=== PATIENT | female | born 1990 | race African-American/Black ===

== ENCOUNTER 2021-12-13 10:22 | Emergency (ER) | payer SELFPAY ==
[2021-12-13] MEDS ORDERED: Ketorolac Tromethamine 30 MG/ML VIAL ONE (11:03)
[2021-12-13] MEDS ORDERED: Lorazepam 1 MG TAB ONE (11:10)
== END 2021-12-13 11:17 | disposition home or self-care (01) ==
LOC: CSHERS 10:22
DX: U07.1 COVID-19 (principal); R06.4 Hyperventilation; F17.210 Nicotine dependence, cigarettes, uncomplicated
CPT/HCPCS: 71045; 93005; 96374; J1885; U0003; U0005

== ENCOUNTER 2021-12-26 09:26 | Emergency (ER) | payer SELFPAY ==
[2021-12-26] MEDS ORDERED: Ketorolac Tromethamine 30 MG/ML VIAL ONE (10:23)
[2021-12-26 10:27] LABS: #Eosinphils 0.1 10x3/uL (0.0-0.5); #Monocytes 0.7 10x3/uL (0.0-1.1); #Neutrophils 4.2 10x3/uL (1.5-8.4); %Basophils 0.3 % (0.0-2.0); %Eosinophils 0.8 % (0.0-6.0); %Lymphocytes 37.9 % (18.0-47.0); %Monocytes 8.3 % (0.0-10.0); %Neutrophils 52.3 % (40.0-75.0); Hemoglobin 12.3 g/dL (12.0-15.5); Mean Corpuscular HGB CONC 33.4 g/dL (32.0-36.0); Mean Corpuscular Volume 83.8 fl (81.6-98.3); Mean Platelet Volume 10.2 fl (7.4-10.4); Platelet Count 370 10x3/uL (150-450); RBC Distribution Width 13.1 % (11.5-14.5); Red Blood Cell (RBC) Count 4.39 10x6/uL (3.90-5.03)
[2021-12-26 11:04] LABS: ALT (SGPT) 14 U/L (8-55); AST (SGOT) 15 U/L (5-34); Albumin 4.7 g/dL (3.5-5.0); Alkaline Phosphatase 54 U/L (40-110); Anion Gap 16 mmol/L (10-20); BUN (Urea Nitrogen) 10 mg/dL (7.0-18.7); Bilirubin, Total 0.8 mg/dL (0.2-1.2); Calc. Creatinine Clearance 0 mL/min (70-130); Calcium 9.8 mg/dL (7.8-10.44); Carbon Dioxide 22 mmol/L (22-29); Chloride 105 mmol/L (98-107); Estimated GFR 103; Globulin 3.2 g/dL (2.4-3.5); Glucose 99 mg/dL (70-105); Potassium 3.6 mmol/L (3.5-5.1); Protein, Total 7.9 g/dL (6.0-8.3); Sodium 139 mmol/L (136-145)
== END 2021-12-26 11:20 | disposition home or self-care (01) ==
LOC: CSHERS 09:26
DX: R07.9 Chest pain, unspecified (principal); R06.02 Shortness of breath; F17.200 Nicotine dependence, unspecified, uncomplicated
CPT/HCPCS: 36415; 71045; 80053; 85025; 93005; 96372; J1885

== ENCOUNTER 2022-02-28 09:04 | Emergency (ER) | payer SELFPAY ==
[2022-02-28 09:30] LABS: Bilirubin Neg (Negative); Blood, Urine Negative (Negative); Clarity Clear (Clear); Glucose, Urine (Dipstick) Normal (Negative); Ketone, Urine Negative (Negative); Leukocyte 25 (Negative); Nitrite Negative (Negative); Protein, Urine (Dipstick) Negative (Neg-Trace); Urobilinogen Normal mg/dL (Less than 2); pH, Urine 6.5 (5.0-9.0)
[2022-02-28 09:35] LABS: Pregnancy Test - Urine (BHCG) Negative (Negative); Pregu Control Background? CLEAR/WHITE (CLR/WHITE); Pregu Control Bar Appear? YES (CONTROL BAR)
[2022-02-28 09:39] LABS: Bacteria/HPF Rare-Few HPF (None Seen); RBC/HPF 0-3 HPF (0-3); Squamous Epithelial 0-3 HPF (0-3)
[2022-02-28] MEDS ORDERED: Ketorolac Tromethamine 30 MG/ML VIAL ONE (10:02)
[2022-02-28 21:01] LABS: Chlamydia by PCR DETECTED (NotDetected); GC by PCR Not Detected (NotDetected)
== END 2022-02-28 10:10 | disposition home or self-care (01) ==
LOC: CSHERS 09:04
DX: N76.0 Acute vaginitis (principal); F17.210 Nicotine dependence, cigarettes, uncomplicated
CPT/HCPCS: 81003; 81015; 81025; 87480; 87491; 87510; 87591; 87660; 96372; 99284; J1885

== ENCOUNTER 2022-05-07 15:54 | Emergency (ER) | payer SELFPAY ==
[~2022-05-07 15:54] MED LIST: Iopamidol 300 61% 100 ML VIAL FS ONE
[2022-05-07 16:38] LABS: #Monocytes 0.6 10x3/uL (0.0-1.1); #Neutrophils 5.4 10x3/uL (1.5-8.4); %Basophils 0.5 % (0.0-2.0); %Eosinophils 0.3 % (0.0-6.0); %Lymphocytes 29.4 % (18.0-47.0); %Monocytes 7.2 % (0.0-10.0); %Neutrophils 62.4 % (40.0-75.0); Hemoglobin 13.1 g/dL (12.0-15.5); Mean Corpuscular HGB CONC 34.1 g/dL (32.0-36.0); Mean Corpuscular Hemoglobin 28.9 pg (27.0-33.0); Mean Corpuscular Volume 84.6 fl (81.6-98.3); Mean Platelet Volume 9.9 fl (7.4-10.4); Platelet Count 294 10x3/uL (150-450); RBC Distribution Width 12.8 % (11.5-14.5); Red Blood Cell (RBC) Count 4.54 10x6/uL (3.90-5.03); White Blood Cell (WBC) Count 8.7 10x3/uL (3.5-10.5)
[2022-05-07 16:46] LABS: ALT (SGPT) 12 U/L (8-55); AST (SGOT) 16 U/L (5-34); Albumin 4.8 g/dL (3.5-5.0); Alkaline Phosphatase 57 U/L (40-110); Anion Gap 14 mmol/L (10-20); BUN (Urea Nitrogen) 10 mg/dL (7.0-18.7); Bilirubin, Total 0.5 mg/dL (0.2-1.2); Calc. Creatinine Clearance 0 mL/min (70-130); Calcium 9.9 mg/dL (7.8-10.44); Carbon Dioxide 25 mmol/L (22-29); Chloride 104 mmol/L (98-107); Estimated GFR 98; Globulin 3.2 g/dL (2.4-3.5); Glucose 102 mg/dL (70-105); Lipase 4 U/L (8-78); Potassium 3.5 mmol/L (3.5-5.1); Sodium 139 mmol/L (136-145)
[2022-05-07 16:57] LABS: Bilirubin Neg (Negative); Blood, Urine Negative (Negative); Clarity Clear (Clear); Glucose, Urine (Dipstick) Normal (Negative); Ketone, Urine Negative (Negative); Leukocyte 100 (Negative); Nitrite Negative (Negative); Protein, Urine (Dipstick) Negative (Neg-Trace); Urobilinogen Normal mg/dL (Less than 2)
[2022-05-07 17:00] LABS: Pregnancy Test - Urine (BHCG) Negative (Negative); Pregu Control Background? CLEAR/WHITE (CLR/WHITE); Pregu Control Bar Appear? YES (CONTROL BAR)
[2022-05-07 17:10] LABS: Bacteria/HPF Rare-Few HPF (None Seen); RBC/HPF 0-3 HPF (0-3); Squamous Epithelial 0-3 HPF (0-3); WBC/HPF 0-3 HPF (0-3)
[2022-05-07] MEDS ORDERED: Ketorolac Tromethamine 30 MG/ML VIAL ONE (17:30)
[2022-05-07] MEDS ORDERED: cefTRIAXone\\ROCEPHIN 1 GM VIAL ONE (19:17)
[2022-05-08 13:05] LABS: Chlamydia by PCR DETECTED (NotDetected); GC by PCR Not Detected (NotDetected)
== END 2022-05-07 20:28 | disposition home or self-care (01) ==
LOC: CSHERS 15:54
DX: A56.02 Chlamydial vulvovaginitis (principal); F17.210 Nicotine dependence, cigarettes, uncomplicated
CPT/HCPCS: 74177; 76856; 80053; 81003; 81015; 81025; 83605; 83690; 85025; 87480; 87491; 87510; 87591; 87660; 96372; 96374; J0696; J1885; Q9967

== ENCOUNTER 2022-08-21 09:01 | Emergency (ER) | payer SELFPAY ==
[2022-08-21] MEDS ORDERED: Ketorolac Tromethamine 30 MG/ML VIAL ONE (09:45)
== END 2022-08-21 10:00 | disposition home or self-care (01) ==
LOC: CSHERS 09:01
DX: N73.9 Female pelvic inflammatory disease, unspecified (principal); F17.210 Nicotine dependence, cigarettes, uncomplicated
CPT/HCPCS: 96372; 99283; J1885

== ENCOUNTER 2023-06-05 09:06 | Emergency (ER) | payer SELFPAY ==
[2023-06-05] MEDS ORDERED: Morphine 4 MG/ML VIAL ONE ×2 (11:36→13:24)
[2023-06-05] MEDS ORDERED: Ondansetron PF 4 MG/2 ML Vial ONE ×2 (11:36→13:25)
[2023-06-05 12:23] LABS: #Eosinphils 0.1 10x3/uL (0.0-0.5); #Monocytes 0.6 10x3/uL (0.0-1.1); #Neutrophils 7.2 10x3/uL (1.5-8.4); %Basophils 0.3 % (0.0-2.0); %Eosinophils 0.6 % (0.0-6.0); %Lymphocytes 30.3 % (18.0-47.0); %Monocytes 5.3 % (0.0-10.0); %Neutrophils 63.2 % (40.0-75.0); Hematocrit 37.2 % (34.9-44.5); Mean Corpuscular HGB CONC 34.9 g/dL (32.0-36.0); Mean Corpuscular Hemoglobin 29.6 pg (27.0-33.0); Mean Corpuscular Volume 84.7 fl (81.6-98.3); Mean Platelet Volume 10.5 fl (7.4-10.4); Platelet Count 270 10x3/uL (150-450); RBC Distribution Width 12.7 % (11.5-14.5); Red Blood Cell (RBC) Count 4.39 10x6/uL (3.90-5.03); White Blood Cell (WBC) Count 11.4 10x3/uL (3.5-10.5)
[2023-06-05 12:33] LABS: ALT (SGPT) 12 U/L (8-55); AST (SGOT) 16 U/L (5-34); Albumin 4.8 g/dL (3.5-5.0); Alkaline Phosphatase 58 U/L (40-110); Anion Gap 14 mmol/L (10-20); BUN (Urea Nitrogen) 11 mg/dL (7.0-18.7); Bilirubin, Total 0.6 mg/dL (0.2-1.2); Calc. Creatinine Clearance 0 mL/min (70-130); Calcium 9.4 mg/dL (7.8-10.44); Carbon Dioxide 25 mmol/L (22-29); Chloride 105 mmol/L (98-107); Estimated GFR 116; Globulin 2.9 g/dL (2.4-3.5); Glucose 99 mg/dL (70-105); Lipase 5 U/L (8-78); Protein, Total 7.7 g/dL (6.0-8.3); Sodium 140 mmol/L (136-145)
[2023-06-05 12:40] LABS: BHCG - Serum Negative (NEGATIVE); Pregs Control Background? CLEAR/WHITE (CLR/WHITE); Pregs Control Bar Appear? YES (CONTROL BAR)
[2023-06-05 14:12] LABS: Bilirubin Neg (Negative); Blood, Urine Negative (Negative); Clarity Clear (Clear); Glucose, Urine (Dipstick) Normal (Negative); Ketone, Urine 15 mg/dL (Negative); Leukocyte Negative (Negative); Nitrite Positive (Negative); Urobilinogen Normal mg/dL (Less than 2)
[2023-06-05] MEDS ORDERED: Famotidine/PF 20 mg/2ml Vial ONE (14:21)
[2023-06-05 15:12] LABS: Protein, Urine (Dipstick) Negative (Neg-Trace)
[2023-06-05 15:19] LABS: Bacteria/HPF 2+ HPF (None Seen); CAUTI Indications for Culture Pelvic or flank pain; RBC/HPF 0-3 HPF (0-3); Squamous Epithelial 0-3 HPF (0-3); WBC/HPF 0-3 HPF (0-3)
[2023-06-05 15:21] LABS: Urine Culture Reflex No No
== END 2023-06-05 14:54 | disposition home or self-care (01) ==
LOC: CSHERS 09:06
DX: K29.70 Gastritis, unspecified, without bleeding (principal); H10.9 Unspecified conjunctivitis; F17.210 Nicotine dependence, cigarettes, uncomplicated
CPT/HCPCS: 36415; 74177; 76705; 80053; 81001; 83690; 84703; 85025; 96374; 96375; J2270; J2405; S0028

== ENCOUNTER 2023-11-04 09:44 | Emergency (ER) | payer SELFPAY | END 2023-11-04 12:19 | disposition home or self-care (01) | LOC: CSHERS 09:44 | DX: J30.9 Allergic rhinitis, unspecified (principal); F17.210 Nicotine dependence, cigarettes, uncomplicated | CPT/HCPCS: 70360; 87081; 87430 ==